=== PATIENT | male | born 1955 | race Caucasian/White ===

== ENCOUNTER → 2019-12-15 | Outpatient (CLI) | payer MEDICARE, OTHER ==
[~2019-12-15] MED LIST: HYDROCODON-ACE1 EAC7 PO
== END ==
LOC: M.ULTRA 09:11
DX: M67.431 Ganglion, right wrist (principal)

== ENCOUNTER 2021-01-22 08:14 | Emergency (ER) | payer MEDICARE, OTHER ==
[~2021-01-22] VITALS: Ht 185.4 cm; Wt 108.9 kg
[2021-01-22 08:46] LABS: ABSOLUTE BASOPHILS 0.1 thou/uL (0.0-0.2); ABSOLUTE EOSINOPHILS 0.2 thou/uL (0.0-0.7); ABSOLUTE LYMPHOCYTES 1.9 thou/uL (0.8-5.3); ABSOLUTE NEUTROPHILS 6.1 thou/uL (1.6-8.1); BASOPHILS 0.6 %; EOSINOPHILS 2.5 %; HEMATOCRIT 44.7 % (42.0-52.0); HEMOGLOBIN 15.9 gm/dL (14.0-18.0); LYMPHOCYTES 20.1 %; MCH 31.8 pg (26.0-34.0); MCHC 35.6 g/dL (28.0-37.0); MCV 89.3 fL (80.0-100.0); MONOCYTES 10.7 %; MPV 7.4 fl. (7.2-11.1); NUCLEATED RBCS 0 /100WBC; PLATELET COUNT* 199 thou/uL (150-400); POLYS 66.1 %; RBC 5.01 mil/uL (4.50-6.00); WBC 9.2 thou/uL (4.0-11.0)
[2021-01-22 08:56] LABS: CALCIUM 8.6 mg/dL (8.5-10.1); POTASSIUM 3.8 mmol/L (3.5-5.1)
[2021-01-22 09:00] LABS: ALBUMIN 4.1 g/dL (3.4-5.0); TOTAL BILIRUBIN 1.2 mg/dL (<0.1-1.0); TOTAL PROTEIN 7.4 g/dL (6.4-8.2)
[2021-01-22] MEDS ORDERED: ZOFRAN ODT4 MG SUBLING (10:07)
[2021-01-22] MEDS ORDERED: FLAGYL500 M1 PO (10:07)
[2021-01-22] MEDS ORDERED: CIPROFLOXACIN500 M1 PO (10:07)
[2021-01-22] MEDS ORDERED: HYDROCODON-ACE1 EAC7 PO (10:07)
[2021-01-22 10:18] VITALS: BP 142/83
--- NOTE | 2021-01-22 12:22 | EKG ---
[place] [address] ELECTROCARDIOGRAM REPORT Name: ANJALIJACOB R Room: [facility]#: [id number] Admission: 01/22/21 Attend Phys: Discharge: 01/22/21 Date of : 51 Date of Service: 01/22/21829 Report #: [id number] THIS REPORT FOR: //name// [facility] ED Test Date: 2021-01-22 Test Time: 08:30:57 Pat Name: JACOB ALBA Department: Room: Gender: [employer]: : 1955 Requested By: Andre Terry Order Number: [id number] MD: Hilario Davis Measurements Intervals [place] Rate: 77 P: 42 IA: 158 QRS: -19 QRSD: 103 T: 17 QT: 394 QTc: 446 Interpretive Statements Sinus rhythm Ventricular premature complex Incomplete RBBB and LAFB Abnormal R-wave progression, early transition No previous ECG available for comparison Electronically Signed On 01-22-2021 12:22:33 CDT by Hilario Davis [email or web address] <ELECTRONICALLY SIGNED> By: Hilario Davis MD, [facility] 01/22/21 1222 Hilario Davis MD, [facility] /EPI
== END 2021-01-22 10:20 | disposition home or self-care (01) ==
LOC: M.ERS 08:14
PROVIDERS: Family Medicine
DX: K57.32 Diverticulitis of large intestine without perforation or abscess without bleeding (principal); F17.220 Nicotine dependence, chewing tobacco, uncomplicated